=== PATIENT | male | born 1965 | race Caucasian/White ===

== ENCOUNTER 2020-06-15 17:13 | Inpatient (IN) | payer OTHER ==
[2020-06-15 19:27] VITALS: BMI 34.1
[2020-06-15] MEDS ORDERED: ONDANSETRON *ODT* 4 MG TABLET SL PRN (19:52)
[2020-06-15] MEDS ORDERED: MAG HYDROX/AL HYDROX/SIMETH 30 ML UNIT-DOSE CUP PO PRN (19:52)
[2020-06-15] MEDS ORDERED: P-EPHED 60MG/TRIPROLIDI 2.5MG TABLET PO PRN (19:52)
[2020-06-15] MEDS ORDERED: IBUPROFEN 400 MG TABLET (FP) PO PRN (19:52)
[2020-06-15] MEDS ORDERED: guaiFENesin 200 MG/10 ML 10 ML UNIT-DOSE CUPS PO PRN (19:52)
[2020-06-15] MEDS ORDERED: ACETAMINOPHEN 325 MG TABLET (FP) PO PRN ×2 (19:52)
[2020-06-15] MEDS ORDERED: DICYCLOMINE HCL 10 MG CAPSULE PO PRN (19:52)
[2020-06-15] MEDS ORDERED: BISMUTH SUBSALICYLATE 524 MG/30 ML PO PRN (19:52)
[2020-06-15] MEDS ORDERED: chlordiazePOXIDE HCL 25 MG CAPSULE PO PRN (19:52)
[2020-06-15] MEDS ORDERED: MENTHOL/PHENOL 1 EACH UD MM PRN (19:52)
[2020-06-15] MEDS ORDERED: METHOCARBAMOL 500 MG TABLET PO PRN (19:52)
[2020-06-15] MEDS ORDERED: MAGNESIUM HYDROX 2400MG/30ML ORAL SUSPENSION 30 ML CUP PO PRN (19:52)
[2020-06-15] MEDS ORDERED: MAGNESIUM CITRATE 300 ML BOTTLE PO PRN (19:52)
[2020-06-15] MEDS ORDERED: hydrOXYzine PAMOATE 25 MG CAPSULE (FP) PO PRN (19:52)
[2020-06-15] MEDS: chlordiazePOXIDE HCL 25 MG CAPSULE PO SCH (22:43)
[2020-06-15] MEDS: THIAMINE HCL 100 MG TABLET (FP) PO SCH (22:43)
[2020-06-15] MEDS: MELATONIN 5 MG TABLETS PO SCH (22:43)
[2020-06-16] MEDS ORDERED: MASKS NR ONE (05:53)
[2020-06-16] MEDS: chlordiazePOXIDE HCL 25 MG CAPSULE PO SCH ×2 (05:53→10:18)
[2020-06-16] MEDS ORDERED: methaDONE HCL 40 MG DISPERSABLE TABLET PO ONE (10:00)
[2020-06-16] MEDS: PRENATAL VITAMINS W/ FOLIC ACID TABLET (FP) PO SCH (10:18)
[2020-06-16 10:51] LABS: HEMATOCRIT 35.4 % (35.4-49); MCH 34.8 pg (25.7-33.7); MCHC 33.9 g/dl (32.0-35.9); MEAN CELL VOLUME 102.7 fl (80-96); MEAN PLT VOLUME 10.5 fl (7.5-11.1); RBC 3.45 M/mm3 (4.00-5.60); RDW 15.9 % (11.9-15.9)
[2020-06-16 10:58] LABS: ALBUMIN 1.9 g/dl (3.4-5.0); BLOOD UREA NITROGEN 6.9 mg/dL (7-18); CALCIUM 7.3 mg/dL (8.5-10.1)
[2020-06-16 11:01] LABS: CREATININE 0.5 mg/dL (0.55-1.3)
[2020-06-16 11:03] LABS: BILIRUBIN,TOTAL 6.3 mg/dL (0.2-1); TOT PROT 6.8 g/dl (6.4-8.2)
[2020-06-16 11:04] LABS: WHITE BLOOD COUNT 1.5 K/mm3 (4.0-10.0)
[2020-06-16 11:05] LABS: PLATELET COUNT 28 K/MM3 (134-434)
[2020-06-16] MEDS: SODIUM CHLORIDE NASAL SPRAY 44 ML BOTTLE NS SCH ×2 (13:22→21:51)
[2020-06-16] MEDS ORDERED: LORazepam 1 MG TABLET PO PRN (13:46)
[2020-06-16] MEDS: LORazepam 2 MG TABLET PO SCH ×2 (19:41→22:03)
[2020-06-16] MEDS: THIAMINE HCL 100 MG TABLET (FP) PO SCH (21:51)
[2020-06-16] MEDS: MELATONIN 5 MG TABLETS PO SCH (21:51)
[2020-06-16 23:06] LABS: EPI CELLS 1 /uL (0-25.1); HYALINE CASTS 1 /uL (0-3.1); PH,URINE 7.5 (5.0-8.0); URINE APPEARANCE CLEAR; URINE BILIRUBIN 3+ (NEGATIVE); URINE COLOR DK YELLOW; URINE GLUCOSE (UA) NEGATIVE (NEGATIVE); URINE KETONE NEGATIVE (NEGATIVE); URINE LEUK ESTERASE NEGATIVE (NEGATIVE); URINE NITRITE POSITIVE (NEGATIVE); URINE PROTEIN NEGATIVE (NEGATIVE); URINE RBC 15 /uL (0-23.9); URINE UROBILINOGEN >=8.0 E.U./dl mg/dL (0.2-1.0); URINE WBC 1 /uL (0-25.8)
[2020-06-16 23:42] LABS: URINE BACTERIA 45.8 /uL (0-1359)
[2020-06-17] MEDS ORDERED: chlordiazePOXIDE HCL 25 MG CAPSULE PO SCH (05:00)
[2020-06-17] MEDS: LORazepam 2 MG TABLET PO SCH ×4 (05:41→23:22)
[2020-06-17] MEDS: SODIUM CHLORIDE NASAL SPRAY 44 ML BOTTLE NS SCH ×3 (05:41→23:21)
[2020-06-17] MEDS ORDERED: methaDONE HCL 40 MG DISPERSABLE TABLET PO SCH (06:00)
[2020-06-17] MEDS ORDERED: amLODIPine BESYLATE 10 MG TABLET (FP) PO SCH (10:15)
[2020-06-17] MEDS: PRENATAL VITAMINS W/ FOLIC ACID TABLET (FP) PO SCH (10:17)
[2020-06-17 11:16] LABS: INR 1.71 (0.83-1.09); PROTHROMBIN TIME (PATIENT) 20.4 SEC (9.7-13.0)
[2020-06-17] MEDS ORDERED: LOSARTAN POTASSIUM 25 MG TABLET PO SCH (11:30)
[2020-06-17 14:07] LABS: HEMATOCRIT 34.8 % (35.4-49); MCH 35.3 pg (25.7-33.7); MCHC 34.6 g/dl (32.0-35.9); MEAN CELL VOLUME 102.1 fl (80-96); MEAN PLT VOLUME 10.7 fl (7.5-11.1); RBC 3.41 M/mm3 (4.00-5.60); RDW 15.5 % (11.9-15.9)
[2020-06-17 14:24] LABS: TOT PROT 7.1 g/dl (6.4-8.2)
[2020-06-17 14:29] LABS: PLATELET COUNT 29 K/MM3 (134-434); WHITE BLOOD COUNT 1.7 K/mm3 (4.0-10.0)
[2020-06-17 14:32] LABS: BILIRUBIN,TOTAL 13.6 mg/dL (0.2-1); BLOOD UREA NITROGEN 9.8 mg/dL (7-18); CREATININE 0.6 mg/dL (0.55-1.3)
[2020-06-17] MEDS ORDERED: LACTULOSE 20 GM/30 ML UDC (FOR ORAL USE ONLY) PO ONE (15:42)
[2020-06-17 17:32] VITALS: BP 143/81; PULSE 85; TEMP 97.8
[2020-06-17] MEDS: LACTULOSE 20 GM/30 ML UDC (FOR ORAL USE ONLY) PO SCH ×2 (17:58→23:19)
[2020-06-17] MEDS ORDERED: MONTELUKAST NA 10 MG TABLET PO SCH (22:00)
[2020-06-17] MEDS: MELATONIN 5 MG TABLETS PO SCH (23:20)
[2020-06-17] MEDS: THIAMINE HCL 100 MG TABLET (FP) PO SCH (23:21)
[2020-06-18] MEDS ORDERED: chlordiazePOXIDE HCL 10 MG CAPSULE PO PRN
[2020-06-18] MEDS ORDERED: FUROSEMIDE 40 MG TABLET (FP) PO ONE (02:39)
[2020-06-18] MEDS ORDERED: LORazepam 1 MG TABLET PO SCH (05:00)
[2020-06-18] MEDS ORDERED: chlordiazePOXIDE HCL 10 MG CAPSULE PO SCH (05:00)
[2020-06-18] MEDS ORDERED: LACTULOSE 20 GM/30 ML UDC (FOR RECTAL USE ONLY) PR SCH (10:00)
[2020-06-18] MEDS ORDERED: SPIRONOLACTONE 25 MG TABLET PO SCH (10:00)
[2020-06-19] MEDS ORDERED: LORazepam 0.5 MG TABLET PO PRN
[2020-06-19] MEDS ORDERED: LORazepam 0.5 MG TABLET PO SCH (05:00)
[2020-06-19] MEDS ORDERED: chlordiazePOXIDE HCL 10 MG CAPSULE PO SCH (05:00)
[2020-06-19 09:46] LABS: EOS % 4.2 % (0-4.5); HEMATOCRIT 38.5 % (35.4-49); HEMOGLOBIN 13.4 GM/dL (11.7-16.9); MCH 30.6 pg (25.7-33.7); MCHC 34.9 g/dl (32.0-35.9); MEAN CELL VOLUME 87.6 fl (80-96); MEAN PLT VOLUME 8.6 fl (7.5-11.1); MONO % 9.1 % (3.8-10.2); NEUT % 40.7 % (42.8-82.8); PLATELET COUNT 190 K/MM3 (134-434); RDW 14.8 % (11.9-15.9); WHITE BLOOD COUNT 5.3 K/mm3 (4.0-10.0)
[2020-06-19 09:53] LABS: INR 0.97 (0.83-1.09); PROTHROMBIN TIME (PATIENT) 11.7 SEC (9.7-13.0)
[2020-06-19 09:56] LABS: ACTIVATED PTT 33.3 SECONDS (25.2-36.5)
[2020-06-19 10:01] LABS: CALCIUM 8.6 mg/dL (8.5-10.1); PHOSPHOROUS 3.7 mg/dL (2.5-4.9); TOT PROT 6.6 g/dl (6.4-8.2)
[2020-06-19 10:02] LABS: ALBUMIN 3.3 g/dl (3.4-5.0); BILIRUBIN,DIRECT 0.2 mg/dL (0.0-0.2); BLOOD UREA NITROGEN 11.1 mg/dL (7-18); MAGNESIUM 2.2 mg/dL (1.8-2.4)
[2020-06-19 10:03] LABS: CREATININE 0.7 mg/dL (0.55-1.3)
[2020-06-19 10:15] LABS: BILIRUBIN,TOTAL 0.5 mg/dL (0.2-1)
[2020-06-20] MEDS ORDERED: LORazepam 0.5 MG TABLET PO ONE (05:00)
[2020-06-20] MEDS ORDERED: chlordiazePOXIDE HCL 10 MG CAPSULE PO ONE (05:00)
[2020-06-22 20:07] LABS: HEP B CORE AB, TOT Negative (Negative)
== END 2020-06-17 11:56 | disposition short-term general hospital (02) | DRG 773 ==
LOC: YASAS 17:13 → Y3N 21:28
PROVIDERS: ADMIT Allergy & Immunology; ATTEND Allergy & Immunology
PROC: HZ2ZZZZ Detoxification Services for Substance Abuse Treatment (ICD-10-PCS; principal; 2020-06-15)
DX: F10.230 Alcohol dependence with withdrawal, uncomplicated (principal); F10.220 Alcohol dependence with intoxication, uncomplicated; F11.20 Opioid dependence, uncomplicated; I10 Essential (primary) hypertension; I45.81 Long QT syndrome; K94.31 Esophagostomy hemorrhage; K70.30 Alcoholic cirrhosis of liver without ascites; E80.7 Disorder of bilirubin metabolism, unspecified; D69.6 Thrombocytopenia, unspecified; R79.1 Abnormal coagulation profile; R74.01 Elevation of levels of liver transaminase levels; J42 Unspecified chronic bronchitis; M19.90 Unspecified osteoarthritis, unspecified site; R63.8 Other symptoms and signs concerning food and fluid intake; K29.20 Alcoholic gastritis without bleeding; R01.1 Cardiac murmur, unspecified; E66.9 Obesity, unspecified; Z68.34 Body mass index [BMI] 34.0-34.9, adult; Z87.891 Personal history of nicotine dependence; Z86.19 Personal history of other infectious and parasitic diseases; Z56.0 Unemployment, unspecified; W08.XXXA Fall from other furniture, initial encounter; Y93.39 Activity, other involving climbing, rappelling and jumping off; Y92.238 Other place in hospital as the place of occurrence of the external cause
CPT/HCPCS: 36415; 80053; 80076; 81003; 82140; 82150; 83690; 83735; 84100; 84443; 85025; 85027; 85610; 85730; 86593; 86704; 86706; 86707; 86708; 86709; 86780; 87340; 93005; 93010; C9803; U0003

== ENCOUNTER 2020-06-16 14:47 | Emergency (ER) | payer OTHER ==
[2020-06-16 15:07] VITALS: TEMP 98.1; BMI 34.1
[2020-06-16] MEDS ORDERED: chlordiazePOXIDE HCL 25 MG CAPSULE PO ONE ×2 (15:54→18:30)
[2020-06-16] MEDS ORDERED: SODIUM CHLORIDE 0.9% 500 ML INFUS.BAG IV ONE (15:59)
[2020-06-16] MEDS ORDERED: chlordiazePOXIDE HCL 25 MG CAPSULE ONE ×2 (16:07→18:50)
[2020-06-16 17:18] LABS: INR 1.55 (0.83-1.09); PROTHROMBIN TIME (PATIENT) 18.8 SEC (9.7-13.0)
[2020-06-16 17:21] LABS: ACTIVATED PTT 38.9 SECONDS (25.2-36.5)
[2020-06-16] MEDS ORDERED: diazePAM 5 MG TABLET PO ONE (18:30)
[2020-06-16] MEDS ORDERED: diazePAM 5 MG TABLET ONE (18:51)
[2020-06-16 19:39] VITALS: BP 144/76; PULSE 68
[2020-06-22 17:40] LABS: HIV INTERPRETATION NEGATIVE (NEGATIVE)
== END 2020-06-16 20:31 | disposition home or self-care (01) ==
LOC: JER 14:47
DX: K74.60 Unspecified cirrhosis of liver (principal); R18.8 Other ascites; F10.230 Alcohol dependence with withdrawal, uncomplicated
CPT/HCPCS: 36415; 76705-TC; 83690; 85610; 85730; 87389; 99284-25

== ENCOUNTER 2020-06-17 18:27 | Inpatient (IN) | payer OTHER ==
[2020-06-17 18:51] VITALS: BMI 30.9
[2020-06-17 21:18] LABS: BASO % 1.4 % (0-2.0); EOS % 4.5 % (0-4.5); HEMATOCRIT 35.3 % (35.4-49); HEMOGLOBIN 12.1 GM/dL (11.7-16.9); LYMPH % 9.5 % (8-40); MCH 35.3 pg (25.7-33.7); MCHC 34.4 g/dl (32.0-35.9); MEAN CELL VOLUME 102.9 fl (80-96); MEAN PLT VOLUME 11.3 fl (7.5-11.1); MONO % 15.6 % (3.8-10.2); PLATELET COUNT 37 K/MM3 (134-434); RBC 3.43 M/mm3 (4.00-5.60); RDW 15.7 % (11.9-15.9)
[2020-06-17 21:21] LABS: WHITE BLOOD COUNT 1.8 K/mm3 (4.0-10.0)
[2020-06-17 21:25] LABS: INR 1.74 (0.83-1.09); PROTHROMBIN TIME (PATIENT) 20.7 SEC (9.7-13.0)
[2020-06-17 21:28] LABS: ACTIVATED PTT 39.4 SECONDS (25.2-36.5)
[2020-06-17 21:46] LABS: CALCIUM 7.9 mg/dL (8.5-10.1)
[2020-06-17 21:49] LABS: CREATININE 0.9 mg/dL (0.55-1.3)
[2020-06-17 21:52] LABS: TOT PROT 7.7 g/dl (6.4-8.2)
[2020-06-17 22:04] LABS: ANISOCYTOSIS 1+; MACROCYTOSIS 0; PLATELET ESTIMATE DECREASED
[2020-06-17 22:29] LABS: BILIRUBIN,TOTAL 16.1 mg/dL (0.2-1); POTASSIUM 7.5 mmol/L (3.5-5.1)
[2020-06-17] MEDS: RIFAXIMIN 550 MG TABLET (UD) PO SCH (22:39)
[2020-06-17 23:37] LABS: BILIRUBIN,DIRECT 11.1 mg/dL (0.0-0.2)
[2020-06-17 23:43] LABS: BILIRUBIN,TOTAL 15.4 mg/dL (0.2-1)
[2020-06-18] MEDS ORDERED: LACTULOSE 20 GM/30 ML UDC (FOR RECTAL USE ONLY) PR SCH ×3 (03:00→10:00)
[2020-06-18 04:11] LABS: POTASSIUM 3.8 mmol/L (3.5-5.1)
[2020-06-18 04:12] LABS: CALCIUM 7.7 mg/dL (8.5-10.1)
[2020-06-18 04:13] LABS: BLOOD UREA NITROGEN 13.2 mg/dL (7-18)
[2020-06-18 04:16] LABS: CREATININE 0.6 mg/dL (0.55-1.3)
[2020-06-18] MEDS ORDERED: LACTULOSE 20 GM/30 ML UDC (FOR ORAL USE ONLY) PO PRN (09:36)
[2020-06-18] MEDS ORDERED: methylPREDNISolone 8 MG TABLET PO SCH (10:00)
[2020-06-18] MEDS: RIFAXIMIN 550 MG TABLET (UD) PO SCH ×2 (10:35→22:34)
[2020-06-18] MEDS: prednisoLONE SODIUM PHOSPHATE 15 MG/5 ML ORAL SOLN BOTTLE PO SCH (10:35)
[2020-06-18] MEDS ORDERED: LACTULOSE 20 GM/30 ML UDC (FOR ORAL USE ONLY) ONE (15:32)
[2020-06-18] MEDS: LACTULOSE 20 GM/30 ML UDC (FOR ORAL USE ONLY) PO SCH ×2 (15:35→22:36)
[2020-06-18] MEDS ORDERED: METHADONE HCL 40 MG DISPERSABLE TABLET ONE (19:17)
[2020-06-18] MEDS: METHADONE HCL 40 MG DISPERSABLE TABLET PO SCH (19:23)
[2020-06-18 20:37] LABS: INR 1.84 (0.83-1.09); PROTHROMBIN TIME (PATIENT) 22.2 SEC (9.7-13.0)
[2020-06-18 20:40] LABS: ACTIVATED PTT 36.6 SECONDS (25.2-36.5)
[2020-06-18 20:50] LABS: ALBUMIN 2.1 g/dl (3.4-5.0); MAGNESIUM 1.8 mg/dL (1.8-2.4)
[2020-06-18 20:53] LABS: BILIRUBIN,DIRECT 14.1 mg/dL (0.0-0.2)
[2020-06-18 20:55] LABS: TOT PROT 7.6 g/dl (6.4-8.2)
[2020-06-18 21:11] LABS: BILIRUBIN,TOTAL 17.4 mg/dL (0.2-1)
[2020-06-19] MEDS ORDERED: LORazepam 1 MG TABLET PO ONE (01:01)
[2020-06-19] MEDS: LACTULOSE 20 GM/30 ML UDC (FOR ORAL USE ONLY) PO SCH (05:35)
[2020-06-19] MEDS: METHADONE HCL 40 MG DISPERSABLE TABLET PO SCH (05:35)
[2020-06-19] MEDS: prednisoLONE SODIUM PHOSPHATE 15 MG/5 ML ORAL SOLN BOTTLE PO SCH (10:11)
[2020-06-19] MEDS: RIFAXIMIN 550 MG TABLET (UD) PO SCH (10:11)
[2020-06-19 15:08] VITALS: BP 109/64; PULSE 69; TEMP 98
[2020-06-20 17:07] LABS: HEP B CORE AB, TOT Positive (Negative)
== END 2020-06-19 15:26 | disposition short-term general hospital (02) | DRG 280 ==
LOC: JER 18:27 → JERBED 23:03 → J7W 06-18 21:46
PROVIDERS: ADMIT Hospitalist; ATTEND Internal Medicine
PROC: HZ2ZZZZ Detoxification Services for Substance Abuse Treatment (ICD-10-PCS; principal; 2020-06-17)
DX: K70.30 Alcoholic cirrhosis of liver without ascites (principal); K70.10 Alcoholic hepatitis without ascites; K70.40 Alcoholic hepatic failure without coma; F11.20 Opioid dependence, uncomplicated; D69.6 Thrombocytopenia, unspecified; F10.230 Alcohol dependence with withdrawal, uncomplicated; I10 Essential (primary) hypertension; E66.9 Obesity, unspecified; B19.20 Unspecified viral hepatitis C without hepatic coma; D72.819 Decreased white blood cell count, unspecified; Z68.32 Body mass index [BMI] 32.0-32.9, adult
CPT/HCPCS: 36415; 74181-TC; 76705-TC; 80048; 80053; 80076; 82105; 82247; 82248; 82962; 83735; 84100; 85025; 85610; 85730; 86704; 86706; 86707; 86708; 86709; 87340; 87902; 93005; 93010; 99285-25; C9803; U0003